=== PATIENT | female | born 1985 | race Caucasian/White ===

== ENCOUNTER 2021-05-18 22:07 | Emergency (ER) | payer MEDICAID ==
[~2021-05-18] VITALS: Ht 154.9 cm; Wt 61.2 kg
[~2021-05-18 22:07] MED LIST: ACETAMINOPHEN325 M1; ANTIVERT12.5 MG PO; APAP500 PO; CIPROFLOXACIN500 M1 PO; CIPROFLOXACIN500 M3 PO; COLACE 100 MG100 MG; CYTO B; DERMOPLAST SPRA56 ML; DEXAMETHASONE 44 M1 PO; FLAGYL500 MG PO; FLEXERIL PO; HYDROCORTISONE30 G9; HYDROXYZINE PAM25 M1; IBUPROFEN 800800 M1; IBUPROFEN 800800 M1 PO; LANOLIN56 GM; LEVAQUIN 500 M500 M2 PO; LIDODERM 5%1 PATC1 TRANSDERM; MEDROLDOSEPACK PO; MOM; NORCO 10-325 T1 EACH; PRENATAL PO; PROCHLORPERAZINE5 M1 PO; PROMETH-CODEIN 65 ML PO; TUCKS MEDICATE1 EAC1; VENTOLIN HFA 1818 GM INH; VICODIN 5-3001 EACH PO; [UNRECOGNIZED DRUG - OTHER]
[2021-05-18 23:41] LABS: HEMATOCRIT 40.4 % (37.0-47.0); HEMOGLOBIN 13.8 gm/dL (12.0-15.0); MCH 30.1 pg (26.0-34.0); MCHC 34.1 g/dL (28.0-37.0); MCV 88.4 fL (80.0-100.0); MPV 7.3 fl. (7.2-11.1); RBC 4.57 mil/uL (4.20-5.00); RDW-CV 13.4 % (10.5-14.5); WBC 9.4 thou/uL (4.0-11.0)
[2021-05-18 23:49] LABS: CREATININE 0.7 mg/dL (0.6-1.3); POTASSIUM 3.4 mmol/L (3.5-5.1)
[2021-05-18 23:53] LABS: ALBUMIN 4.2 g/dL (3.4-5.0); TOTAL BILIRUBIN 0.5 mg/dL (<0.1-1.0); TOTAL PROTEIN 7.5 g/dL (6.4-8.2)
[2021-05-19 00:11] LABS: URINE BILIRUBIN NEGATIVE (Negative); URINE BLOOD TRACE (Negative); URINE COLOR YELLOW; URINE GLUCOSE-RANDOM NEGATIVE (Negative); URINE KETONES 1+ (Negative); URINE LEUKOCYTES 1+ (Negative); URINE NITRITE NEGATIVE (Negative); URINE PROTEIN NEGATIVE (Negative); URINE UROBILINOGEN 0.2 E.U./dl (0.2-1.0)
[2021-05-19 00:13] LABS: URINE CLARITY SL CLOUDY
[2021-05-19 00:15] LABS: BACTERIA >30 Many /HPF (None Seen); SQUAMOUS >10 Many /LPF (0-3); TRANSITIONAL EPITHEL CELL 0-3 Few /LPF (None Seen); URINE WBC 6-15 Few /HPF (0-5)
[2021-05-19 00:16] LABS: CASTS None Seen /LPF (None Seen); CRYSTALS None Seen /LPF (None Seen); MUCUS 4-6 Moderate strn/LPF (None Seen)
[2021-05-19 00:19] LABS: AMP/METHAMP POSITIVE (Negative); BARBITURATES Negative (Negative); BENZODIAZEPINES Negative (Negative); COCAINE Negative (Negative); METHADONE Negative (Negative); OPIATES Negative (Negative); PCP Negative (Negative); THC POSITIVE (Negative)
[2021-05-19 00:23] LABS: ALCOHOL < 10 mg/dL (<10); SALICYLATE 4.1 mg/dL (2.8-20.0)
[2021-05-19 00:24] LABS: ACETAMINOPHEN < 2 ug/mL (10-30)
[2021-05-19 00:57] VITALS: BP 118/78
== END 2021-05-19 00:58 | disposition home or self-care (01) ==
LOC: M.ERS 22:07
PROVIDERS: Personal Emergency Response Attendant
DX: F32.A Depression, unspecified (principal); F15.90 Other stimulant use, unspecified, uncomplicated; E66.9 Obesity, unspecified; Z88.1 Allergy status to other antibiotic agents; Z88.0 Allergy status to penicillin